=== PATIENT | female | born 1990 | race Caucasian/White ===

== ENCOUNTER 2017-08-18 15:15 | Outpatient (RCR) | payer OTHER ==
--- NOTE | 2017-07-04 12:48 | PT INITIAL EVALUATION ---
MEDICAL DIAGNOSIS: Left Sciatic Pain, TREATMENT DIAGNOSIS: Left Sciatic Pain, , Piriformis Syndrome DATE OF ONSET: 05/02/17 SUBJECTIVE: Lea is a 26 year old female presenting to physical therapy following onset of pain in the posterior L leg and buttocks that occasionally radiates down to the back of the knee with associated numbness and tingling that radiates down to the foot. Pt is currently 26 weeks and reports that pain has been progressively getting worse and more frequent since it's onset in April with frequent hiking during hunting season. Pt reports that pain currently is not present, but that it comes on with increased activity such as moving for work or while painting the baby's room. At worst pt rates pain as a 9/10. Pain is decreased with rest. Pt denies any back pain. 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 ROM: Lumbar ROM screen: flexion: full with L buttocks pain, ext: full without pain, L SB: full with low back pain on R side, R SB: full with low back pain on L side, B rotation: full with stretch end-feel no pain. Hip ROM: Flexion: B WFL, IR: B WFL with pain at end range on L side, ER: B WFL Strength: Pain with hip resisted ER on L side. Palpation: Pt has tenderness to deep palpation of the L piriformis muscle as well as with palpation of the L SIJ Sensation: Sensation intact to light touch throughout B LE. Special Tests: EUSEBIO (-), FADIR (-), Thigh Thrust (+)L, SIJ compression (+), SIJ gapping (+) Mobility: Tressa Lumbar Screen: All repeated motions resulting in no change in pain status. ASSESSMENT: Pt shows signs and symptoms consistent with L SIJ dysfunction resulting in associated L piriformis syndrome and neural impingement. Physical therapy is indicated to address the above listed impairments to improve pt function with ADL's including work and recreational activities. Short Term Goals In 3 weeks pt will improve B UE hip ROM to full without onset of pain in end range for improved function with ADL's. In 3 weeks pt will be able to perform 10 minutes of aerobic activity similar to hiking (walking, stair climbing )without onset of pain for improved function in work and recreational activities. Patient's Goals Decrease pain. PLAN: Patient to be seen for Manual Therapy/STM/MET Strengthening/condition Ice/Heat Range of Motion Spinal Stabilization Ultrasound Stretching Iontophoresis Neuromuscular Re-ed Closed Chain Program Electrical Stim Posture/Body mechanics Gait Trg/Balance Trg Biofeedback Home Exercise Program Mech./Manual Traction Therapeutic Activities Pelvic Floor 3x/Week for 6 Weeks If you have any questions, comments, or concerns about this report or plan, please contact me at . Thanks, Glenny Parker, PT, DPT, CLT MTDD
[~2017-08-18 15:15] MED LIST: ACE3 PO; AMO500 PO; CIPR-344 PO; IBU600 PO; LEVO1IUD2 IY; LOR5/325 PO; METR-1 PO; MOMR ENA; NORG1TAB5 PO
== END 2017-09-30 ==
LOC: PT 15:15
PROVIDERS: ATTEND Obstetrics & Gynecology
DX: M54.32 Sciatica, left side (principal); Z33.1 Pregnant state, incidental; Z3A.26 26 weeks gestation of pregnancy
CPT/HCPCS: 97161

== ENCOUNTER 2017-09-22 05:37 | Inpatient (IN) | payer OTHER ==
[~2017-09-22] VITALS: Ht 160 cm; Wt 103.4 kg
[2017-10-04] MEDS ORDERED: DLR(*) 1000 ML BAG 1,000 ML IV PRN (04:41)
[2017-10-04] MEDS ORDERED: ceFAZolin(*) 2GM/D5W 50ML 50 ML IVPB PRN (05:02)
[2017-10-04] MEDS ORDERED: FAMOTIDINE(*) 20MG/50ML PREMIX 50 ML IVPB PRN (05:02)
[2017-10-04] MEDS ORDERED: OXYTOCIN 30 UNIT/D5LR 500 ML 500 ML IV PRN ×3 (05:02→09:11)
[2017-10-04] MEDS ORDERED: LIDOCAINE/SOD BICARB 8.4% SYR SC PRN (05:05)
[2017-10-04] MEDS ORDERED: LIDOCAINE 1% LOCAL 300 MG/30ML INJ PRN (05:05)
[2017-10-04] MEDS ORDERED: METOCLOPRAMIDE 10 MG/2 ML SDV IVP PRN (05:05)
[2017-10-04] MEDS ORDERED: fentaNYL CITR 100 MCG/2 ML AMP IVP PRN (05:05)
[2017-10-04 05:17] LABS: PLATELET COUNT, AUTOMATED 154 K/uL (150-450)
[2017-10-04] MEDS ORDERED: MISOPROSTOL 25 MCG CAP PV PRN (05:35)
[2017-10-04] MEDS ORDERED: ONDANSETRON 4 MG/2 ML VIAL IVP PRN (05:35)
[2017-10-04] MEDS ORDERED: TERBUTALINE SULF 1 MG/ML VIAL SUBQ PRN ×2 (05:35→09:15)
[2017-10-04] MEDS: LR(*) 1000 ML BAG 1,000 ML IV PRN ×3 (05:38→14:04)
[2017-10-04 05:45] VITALS: BP 114/75; Ht 160 cm; Wt 103.4 kg
[2017-10-04] MEDS ORDERED: PREN-127 PO (06:37)
[2017-10-04] MEDS ORDERED: ACET-1966 PO (06:37)
[2017-10-04] MEDS ORDERED: FAMO20TA28 PO (06:37)
[2017-10-04] MEDS ORDERED: EPIDURAL KEYS XX PRN (08:10)
[2017-10-04] MEDS ORDERED: BUPIVACAINE 0.25% MPF INJ EPI PRN (08:10)
[2017-10-04] MEDS ORDERED: FENTANYL/ROPIVACAINE 100 ML BAG EPI PRN (08:10)
[2017-10-04] MEDS ORDERED: LIDOCAINE/PF 2% 200MG/10ML AMP 200 MG/10 ML AMPUL EPI PRN (08:10)
[2017-10-04] MEDS ORDERED: fentaNYL CITR 100 MCG/2 ML AMP IT PRN (08:10)
--- NOTE | 2017-10-04 08:15 | History & Physical ---
History of Present Illness Age of Patient: 27 : 1 Para or TPAL: 0000 EDC per LMP: Oct 06, 2017 Estimated Gestational Age: 39.5 Chief Complaint LOSS OF FLUID History of Present Illness The patient is a 27 year old 1 para 0000 admitted at 39 5/7 weeks estimated gestational age with an estimated date of delivery 10/06/17 . Patient is admitted with complaint of loss of fluid. No vaginal bleeding. Good movement and occasional contractions. She was evaluated for active labor. She had an uncomplicated course. Her record was reviewed. History Allergies: Coded Allergies: No Known Drug Allergies (Unverified , 08/19/16) Med Rec Home Meds Reported Medications Acetaminophen (TYLENOL) 325 Mg Tablet, 325 MG PO, TAB 10/04/17 Famotidine (PEPCID) 20 Mg Tablet, 20 MG PO QDAY, #10 TAB 10/04/17 Vits W-Ca,Fe,Fa(<1MG) ( VITAMINS) 1 Each Tablet, 1 EACH PO DAILY, TAB 10/04/17 Discontinued Reported Medications Levonorgestrel (MIRENA) 1 Each Iud, 1 EACH IY, #1 07/23/16 Discontinued Scripts Metronidazole (FLAGYL) 500 Mg Tablet, 500 MG PO BID, #20 TAB Prov:DIANA XAVIER MD 08/19/16 Ciprofloxacin Hcl (CIPRO) 500 Mg Tablet, 500 MG PO BID, #20 Prov:DIANA XAVIER MD 08/19/16 Exam General Exam Vital Signs Vital Signs Date Time Temp Pulse Resp B/P (MAP) Pulse Ox O2 Delivery O2 Flow Rate FiO2 10/04/17 05:45 98.7 86 16 114/75 (88) 94 Room Air Cardiovascular: Regular Rate and Rhythm Respiratory: Clear to Auscultation Abdomen: Gravid - Non-Tender Extremities: No Edema Cervical Dialation: 3 (rn) Uterine Contractions(Q min): 5 Fetus Heart Tone Variabilty: Moderate FHT Category: I Medical Decision Making Data Points Result Diagram: 10/04/17 0510 Assessment and Plan Problems: (1) Active labor at term Assessment & Plan: loss of fluid, no change in cervix, desires epidural will place and augment as necessary Copies to: UMESH SCHAEFER MD, JOHN MD Oct 04, 2017 08:15
--- NOTE | 2017-10-04 09:13 | Labor Progress Note ---
Labor Subjective Progress Notes Subjective comfortable with epidural Vaginal Discharge/Fluid: Clear Fluid Labor Pain: Comfortable Labor Objective Vital Signs Vital Signs Date Time Temp Pulse Resp B/P (MAP) Pulse Ox O2 Delivery O2 Flow Rate FiO2 10/04/17 05:45 98.7 86 16 114/75 (88) 94 Room Air Cervical Dialation: 3.5 Cervical Effacement (%): 80 Cervical Consistency: Moderate Cervical Position: Mid Station: 0 Presentation: Vertex Uterine Contractions(Q min): 4 Uterine Contraction Strength: Mild Fetus Heart Tones: 130 FHT Category: I Other Result Diagram: 10/04/17 0510 Assessment and Plan Problems: (1) Active labor at term Assessment & Plan: will augment with pitocin, will need some softening of cervix before likely to see normal labor change in cervix UMESH SCHAEFER MD Oct 04, 2017 09:13
--- NOTE | 2017-10-04 09:50 | Anesthesia OB Pre-Anes Eval ---
History of Present Illness Anesthesia Start Date: Oct 04, 2017 Anesthesia Start Time: 08:14 OB Anesthesia Diagnosis: spontaneous labor, spontaneous ROM EDC: Oct 06, 2017 : 1 Para: 0 Pain Ratin Result Diagram: 10/04/17 0510 Height (Inches): 63.00 Weight (Pounds): 228 BMI Calculated: 40.38 Past Medical History Home Meds Reported Medications Acetaminophen (TYLENOL) 325 Mg Tablet, 325 MG PO, TAB 10/04/17 Famotidine (PEPCID) 20 Mg Tablet, 20 MG PO QDAY, #10 TAB 10/04/17 Vits W-Ca,Fe,Fa(<1MG) ( VITAMINS) 1 Each Tablet, 1 EACH PO DAILY, TAB 10/04/17 Discontinued Reported Medications Levonorgestrel (MIRENA) 1 Each Iud, 1 EACH IY, #1 07/23/16 Discontinued Scripts Metronidazole (FLAGYL) 500 Mg Tablet, 500 MG PO BID, #20 TAB Prov:DIANA XAVIER MD 08/19/16 Ciprofloxacin Hcl (CIPRO) 500 Mg Tablet, 500 MG PO BID, #20 Prov:DIANA XAVIER MD 08/19/16 Allergies: Coded Allergies: No Known Drug Allergies (Unverified , 08/19/16) Anesthesia OB ROS Eyes ROS: other Airway Class: ll GI ROS: ice chips Last Solids Date: Oct 04, 2017 Last Solids Time: 04:30 ASA Classification: 2, E Assessment and Plan Anesthesia Plan: LEB Assessment Anesthesia consent signed, epidural procedure and complications explained in pre -anesthesia visit. procedure briefly explained again. Questions invited. Lea stated she is ok to proceed. Anesthesia Stop Day: Oct 04, 2017 Anesthesia Stop Time: 08:20 SALEEM HOPE CRNA Oct 04, 2017 09:50
--- NOTE | 2017-10-04 09:59 | Procedure Note ---
Anesthetic Placement Note Anesthesia Plan: LEB Permit for Anesthesia Signed: Yes Anesthesia Technique: Patient Sitting Anesthesia Prep: Chlorhexidine Interspace: L 2-3 Amount Local - cc's: 3 Anesthesia Needle: 17g Touhy/Schliff Anesthesia Attempts: 2 Loss of Resistance: Air Depth of DO (cm): 4 Cerebral Spinal Fluid: No Catheter Insertion (cm): 5 Catheter Type: Norton - Spring Wound Epidural Dressing: Tegaderm Anesthesia Tray: Lot Number ([id number]), Expiration Date (2018-05-03), Reference Number ([id number]) Anesthesia Medications: Epidural Test Dose: 1.5 Lido/Epi (1:200,000), Dose - mL (5 ), Time (0832), Negative Epidural Loading Dose: 0.2% Ropivicaine, With Fentanyl 2mcg/ml, Dose - ml (10) , Time (0842) Epidural Infusion: 0.2% Ropivicaine, With Fentanyl 2mcg/ml, Start Time: (0850) Epidural Pump Setting: Bolus Dose - mL (5), Lockout - Minutes (10), Maintenance Rate - mL/hr (9), Maximum per Hour - mL (19) Complications: None Comment: pt. tolerated well. no csf, blood or paresthesias noted. pain score prior to epidural was 9 and after was 0. SALEEM HOPE CRNA Oct 04, 2017 09:59
--- NOTE | 2017-10-04 10:03 | Anesthesia Progress Note ---
Progress/Maintenance Anesthesia Note Date: Oct 04, 2017 Anesthesia Note Time: 10:00 Pain Intensity: 0 Pump: On Pump Rate (ML/HR): 9 Motor Level: Bending Knees-Bilateral Dilatation: 3 Position: Semi-Fowlers Report Received From: Other (Duane Hope CRNA) SALEEM HOPE CRNA Oct 04, 2017 10:02
--- NOTE | 2017-10-04 13:02 | Labor Progress Note ---
Labor Subjective Progress Notes Subjective comfortable with epidural Labor Pain: Comfortable Labor Objective Vital Signs Vital Signs Date Time Temp Pulse Resp B/P (MAP) Pulse Ox O2 Delivery O2 Flow Rate FiO2 10/04/17 05:45 98.7 86 16 114/75 (88) 94 Room Air Cervical Dialation: 9 (RN EXAM) Uterine Contractions(Q min): 3 Fetus Heart Tones: 120 Heart Tone Variabilty: Moderate FHT Category: II Other Result Diagram: 10/04/17 0510 Assessment and Plan Problems: (1) Active labor at term Assessment & Plan: PROGRESSING ANTICIPATE VAGINAL DELIVERY UMESH SCHAEFER MD Oct 04, 2017 13:02
--- NOTE | 2017-10-04 14:20 | Anesthesia Progress Note ---
Progress/Maintenance Anesthesia Note Date: Oct 04, 2017 Anesthesia Note Time: 14:15 Pain Intensity: 7 Pump: On Pump Rate (ML/HR): 9 Motor Level: Bending Knees-Bilateral Dilatation: 9 Position: Semi-Fowlers Drug Bolus: 0.25% Marcaine, Other (3 ml of 0.25 Marcaine plus 100 mcgs Fentanyl ) SALEEM HOEP CRNA Oct 04, 2017 14:20
[2017-10-04] MEDS ORDERED: FAMOTIDINE(*) 20MG/50ML PREMIX 50 ML IVPB SCH (15:00)
--- NOTE | 2017-10-04 15:55 | Anesthesia Progress Note ---
Progress/Maintenance Anesthesia Note Date: Oct 04, 2017 Anesthesia Note Time: 15:50 Pain Intensity: 3 Pump: Off Motor Level: Bending Knees-Bilateral Dilatation: 10 Position: Semi-Fowlers Anesthesia Treatment: Bag empty, pump off. Pt pushing. will bolus if needed. SALEEM HOPE CRNA Oct 04, 2017 15:55
[2017-10-04] MEDS ORDERED: BUPIV/EPI 0.25% 1:200,000 50ML INFIL ONE (16:30)
[2017-10-04] MEDS ORDERED: LANOLIN OINT 7 GM TUBE TP PRN (17:00)
[2017-10-04] MEDS ORDERED: ACETAMINOPHEN 325 MG TAB PO PRN (17:00)
[2017-10-04] MEDS ORDERED: HYDROmorphone HCL 2 MG TAB PO PRN (17:00)
[2017-10-04] MEDS ORDERED: MAGNESIUM HYDROXIDE* 30ML UDCP PO PRN (17:00)
[2017-10-04] MEDS ORDERED: HYDROCORTISONE 2.5% CR 30GM TB PR PRN (17:00)
[2017-10-04] MEDS ORDERED: HYDR2TAB4 PO (17:01)
[2017-10-04] MEDS ORDERED: IBUP800T37 PO (17:01)
--- NOTE | 2017-10-04 17:01 | OB Delivery Note ---
Delivery Note Vaginal Delivery Type: Spont. Vaginal Delivery Delivery Date: Oct 04, 2017 Delivery Time: 16:17 Delivery Anesthesia: Epidural, Local Sex: Female Weight (gms): [address] [place] Apgars: 1 Minute (8), 5 Minute (9) Repair Needed: Laceration, Vaginal, 2nd Degree Estimated Blood Loss: 400 Delivery Complications: Nuchal Cord Notes: PROM, MADE SLOW PROGRESS INITIALLY, AUGMENTED WITH PITOCIN AFTER EPIDURAL PLACED. PROGRESSED TO COMPLETE, PUSHED EFFECTIVELY. DELIVERY OVER MIDLINE LACERATION, NO COMPLICATIONS, REPAIRED WITH 3-0 VICRYL, LABIAL FLAP APPROXIMATED WITH 4-0 VICRYL. TOLERATED WELL Feeder Loader in Attendence: No Copies to: UMESH SCHAEFER MD, JOHN MD Oct 04, 2017 17:01
--- NOTE | 2017-10-04 17:03 | OB/GYN Discharge Summary ---
Discharge Summary Reason for Hosp/Final Diag: (1) Active labor at term (2) care following vaginal delivery Hospital Course & Plan: PROM, PITOCIN AUGMENTED WITH EPIDURAL VAGINAL DELIVERY , ON DAY 2, Pain controlled, Tolerating diet and activity. Baby . Normal lochia. Lates Vital Signs Vital Signs Date Time Temp Pulse Resp B/P (MAP) Pulse Ox O2 Delivery O2 Flow Rate FiO2 10/04/17 05:45 98.7 86 16 114/75 (88) 94 Room Air Weight (Pounds): 228 Result Diagram: 10/04/17 0510 Condition: Improved Discharge: Home, Self Long Term Meds Active Scripts Ibuprofen (IBUPROFEN) 800 Mg Tablet, 1 TAB PO Q8H, #30 TAB 0 Refills Take with food every 8 hours. Prov:UMESH JI MD 10/04/17 Hydromorphone Hcl (HYDROMORPHONE HCL) 2 Mg Tablet, 2-4 MG PO Q4H for PAIN, #20 TAB 0 Refills Prov:UMESH JI MD 10/04/17 Reported Medications Acetaminophen (TYLENOL) 325 Mg Tablet, 325 MG PO, TAB 10/04/17 Famotidine (PEPCID) 20 Mg Tablet, 20 MG PO QDAY, #10 TAB 10/04/17 Vits W-Ca,Fe,Fa(<1MG) ( VITAMINS) 1 Each Tablet, 1 EACH PO DAILY, TAB 10/04/17 Discontinued Reported Medications Levonorgestrel (MIRENA) 1 Each Iud, 1 EACH IY, #1 07/23/16 Discontinued Scripts Metronidazole (FLAGYL) 500 Mg Tablet, 500 MG PO BID, #20 TAB Prov:DIANA XAVIER MD 08/19/16 Ciprofloxacin Hcl (CIPRO) 500 Mg Tablet, 500 MG PO BID, #20 Prov:DIANA XAVIER MD 08/19/16 Follow up with: Dr. Ji [phone] Follow up in: 6 wks PP or PO Discharge Diet: As Tolerates Discharge Activity: Pelvic Rest Copies to: UMESH JI MD, JOHN MD Oct 04, 2017 17:03
[2017-10-04] MEDS: BENZOCAINE 20% 60 ML BTL TP PRN (18:31)
[2017-10-04] MEDS: GLYCERIN/WITCH HAZEL LEAF 1 PK TP PRN (18:31)
[2017-10-04] MEDS: IBUPROFEN 800 MG TAB PO SCH (18:32)
[2017-10-04 19:55] VITALS: BP 123/66
[2017-10-04] MEDS: DOCUSATE CALCIUM 240 MG CAP PO SCH (20:54)
[2017-10-04 23:50] VITALS: BP 111/60
[2017-10-05] MEDS: IBUPROFEN 800 MG TAB PO SCH ×3 (01:30→17:39)
[2017-10-05 03:40] VITALS: BP 104/62
--- NOTE | 2017-10-05 07:21 | OB/GYN Progress Note ---
OB Subjective Progress Notes Subjective Pain controlled, Tolerating diet and activity. Baby . Normal lochia. GI: POS Flatus, NEG Nausea, NEG Vomiting : Voiding Well Pain: Mild OB Objective Physical Exam Vital Signs Date Time Temp Pulse Resp B/P (MAP) Pulse Ox O2 Delivery O2 Flow Rate FiO2 10/05/17 03:40 98.6 59 18 104/62 (76) Room Air 10/04/17 05:45 94 Cardiovascular: Regular Rate and Rhythm Respiratory: Clear to Auscultation Abdomen: Fundus Firm Extremities: No Edema Result Diagram: 10/05/17 0525 Assessment and Plan Post Day: 1 POSTAL SERVICE CLERK Assessment: Stable POSTAL SERVICE CLERK Plan: Discharge Home Tomorrow Problems: (1) Active labor at term (2) care following vaginal delivery Assessment & Plan: Pain controlled, Tolerating diet and activity. Baby . Normal lochia. UMESH SCHAEFER MD Oct 05, 2017 07:21
[2017-10-05 07:45] VITALS: BP 110/70
[2017-10-05] MEDS ORDERED: MEASLES,MUMP,RUBELLA VAC 0.5ML SUBQ ONE (09:00)
[2017-10-05] MEDS ORDERED: DIPHTH/TETANUS/ACEL. PERTUSSIS IM ONLY ONE (09:00)
[2017-10-05] MEDS ORDERED: INFLUENZA VIRUS VAC 0.5 ML SYR IM ONLY ONE (09:00)
[2017-10-05] MEDS: MULTIVITAMINS (PRENATAL) TAB PO SCH (09:30)
[2017-10-05] MEDS: DOCUSATE CALCIUM 240 MG CAP PO SCH ×2 (09:30→20:43)
--- NOTE | 2017-10-05 10:33 | Anesthesia Post Eval Note ---
Anesthesia Post Eval Note Pt able to participate in Eval: Yes Cardiovascular Status: Satisfactory Respiratory Status: Satisfactory Pain Managment: Satisfactory PO Nausea/Vomiting: Satisfactory Temperature Management: Satisfactory Mental Status: Satisfactory Post-Op Hydration Status: Satisfactory Anesthesia Type: LEB Anesthesia Tolerance: Reports no complaints except numbness in great toe. It appears to be slowly resolving. SALEEM HOPE CRNA Oct 05, 2017 10:33
[2017-10-05 13:00] VITALS: BP 120/63
[2017-10-05 17:15] VITALS: BP 124/66
[2017-10-05] MEDS: GLYCERIN/WITCH HAZEL LEAF 1 PK TP PRN (17:39)
[2017-10-05 20:46] VITALS: BP 112/83
[2017-10-06] MEDS: IBUPROFEN 800 MG TAB PO SCH ×2 (00:28→09:23)
[2017-10-06 00:38] VITALS: BP 128/78
--- NOTE | 2017-10-06 08:13 | OB/GYN Progress Note ---
OB Subjective Progress Notes Subjective Pain controlled, Tolerating diet and activity. Baby . Normal lochia. GI: POS Flatus, NEG Nausea, NEG Vomiting : Voiding Well Pain: Mild OB Objective Physical Exam Vital Signs Date Time Temp Pulse Resp B/P (MAP) Pulse Ox O2 Delivery O2 Flow Rate FiO2 10/06/17 03:40 16 10/06/17 00:38 98.0 69 128/78 (95) 10/05/17 21:04 Room Air 10/05/17 20:46 95 Cardiovascular: Regular Rate and Rhythm Respiratory: Clear to Auscultation Abdomen: Fundus Firm Extremities: No Edema Result Diagram: 10/05/17 0525 Assessment and Plan Problems: (1) Active labor at term (2) care following vaginal delivery Assessment & Plan: Pain controlled, Tolerating diet and activity. Baby . Normal lochia. UMESH SCHAEFER MD Oct 06, 2017 08:13
[2017-10-06 08:45] VITALS: BP 115/72
[2017-10-06] MEDS: DOCUSATE CALCIUM 240 MG CAP PO SCH (09:23)
[2017-10-06] MEDS: MULTIVITAMINS (PRENATAL) TAB PO SCH (09:23)
[2017-10-06] MEDS: BENZOCAINE 20% 60 ML BTL TP PRN (09:27)
== END 2017-10-06 11:40 | disposition home or self-care (01) | DRG 775 ==
LOC: OB 10-04 04:39
PROVIDERS: ADMIT Obstetrics & Gynecology; ATTEND Obstetrics & Gynecology
PROC: 10E0XZZ Delivery of Products of Conception, External Approach (ICD-10-PCS; principal; 2017-10-04)
PROC: 0KQM0ZZ Repair Perineum Muscle, Open Approach (ICD-10-PCS; 2017-10-04)
DX: O69.81X0 Labor and delivery complicated by cord around neck, without compression, not applicable or unspecified (principal); O70.1 Second degree perineal laceration during delivery; Z3A.39 39 weeks gestation of pregnancy; Z37.0 Single live birth
CPT/HCPCS: 36415; 85025; 85027; 86850; 86900; 86901; J2590; J7120

== ENCOUNTER → 2017-12-24 | Outpatient (REF) ==
[2017-10-04 05:45] VITALS: BMI 40.4
[~2017-12-24] MED LIST changes: +ACET-1966 PO; +FAMO20TA28 PO; +HYDR2TAB4 PO; +IBUP800T37 PO; +PREN-127 PO
[2017-12-24 08:48] LABS: LDL CHOLESTEROL 120 mg/dl
== END ==
DX: Z02.9 Encounter for administrative examinations, unspecified (principal)

== ENCOUNTER 2018-06-21 18:28 | Emergency (ER) | payer OTHER ==
[2017-10-04 05:45] VITALS: BMI 40.4
[~2018-06-21 18:28] MED LIST changes: +FLUC200T56 PO
--- NOTE | 2018-06-21 18:36 | ER Report ---
History and Physical Time Seen By MD: 18:36 Hx. of Stated Complaint: PATIENT REPORTS SORE THROAT, COUGH, CONGESTION AND BILATERAL EAR PAIN HPI/ROS CHIEF COMPLAINT: Sinus congestion, cough, sore throat HISTORY OF PRESENT ILLNESS: 27-year-old female patient presents to emergency room with complaint of sinus congestion, cough, sore throat. Patient states this been going on for the past 11 days. She states that she did have a strep screen done on Friday which was negative. She states she does have headache, she's had a cough which seems to worse when she lays down. She denies any nausea, vomiting or diarrhea. She is taken multiple [id number] medications which have not seemed to help. She denies having any fevers, chills. Allergies: Coded Allergies: No Known Drug Allergies (Unverified , 08/19/16) Home Meds Active Scripts Amoxicillin/Pot Clav 875-125 Mg Tab (AUGMENTIN 875-125 TABLET) 1 Each Tablet, 1 TAB PO Q12H, #12 TAB Prov:ELIN HARRISON 06/21/18 Fluconazole (FLUCONAZOLE) 200 Mg Tablet, 200 MG PO QDAY for 14 Days, #15 TAB-CAP 0 Refills Take 2 tablets by mouth on day one, then one tablet by mouth every day for 13 days. Prov:RACHEL KING DO 06/08/18 Ibuprofen (IBUPROFEN) 800 Mg Tablet, 1 TAB PO Q8H, #30 TAB 0 Refills Take with food every 8 hours. Prov:UMESH SCHAEFER MD 10/04/17 Hydromorphone Hcl (HYDROMORPHONE HCL) 2 Mg Tablet, 2-4 MG PO Q4H for PAIN, #20 TAB 0 Refills Prov:UMESH SCHAEFER MD 10/04/17 Reported Medications Acetaminophen (TYLENOL) 325 Mg Tablet, 325 MG PO, TAB 10/04/17 Famotidine (PEPCID) 20 Mg Tablet, 20 MG PO QDAY, #10 TAB 10/04/17 Vits W-Ca,Fe,Fa(<1MG) ( VITAMINS) 1 Each Tablet, 1 EACH PO DAILY, TAB 10/04/17 Past Medical/Surgical History Patient denies any pertinent medical or surgical history. Reviewed Nurses Notes: Yes Hx Smoking: No Smoking Status: Former Smoker Exposure to Second Hand Smoke?: No Hx Substance Use Disorder: No Hx Alcohol Use: No Constitutional Vital Sign - Last 24 Hours 06/21/18 06/21/18 06/21/18 06/21/18 18:31 18:31 18:43 18:58 Temp 98.0 Pulse 102 96 102 Resp 20 B/P (MAP) 122/84 122/84 (97) Pulse Ox 93 96 92 O2 Delivery Room Air 06/21/18 19:00 B/P (MAP) 104/70 (81) Physical Exam General appearance: Alert no distress. Respiratory: Chest is non tender, lungs are clear to auscultation. Cardiac: Regular rate and rhythm. ENT: Tympanic membranes are pearly-marie, auditory canals are patent, mixed mucous membranes are moist. Patient does have erythema and swelling of the bilateral nasal passages. Patient has tenderness over the maxillary sinuses. DIFFERENTIAL DIAGNOSIS: After history and physical exam differential diagnosis was considered for sinusitis Medical Decision Making ED Course/Re-evaluation ED Course Patient was admitted and examined, history and physical were obtained. Differential diagnoses were considered. On examination lungs are clear, heart is regular, abdomen is soft and nontender. Patient does have bilateral maxillary sinus tenderness. I believe the patient has a sinusitis especially with how long this condition has lasted. We will go ahead and treat her with Augmentin twice a day. Patient states she is currently breast-feeding. We did review the drug profile and this is safe for breast-feeding. Discussed with the patient who verbalized understanding and agreement. Patient will be discharged home. She is to follow-up with her primary care provider with any concerns within the next week. Decision to Disposition Date: Jun 21, 2018 Decision to Disposition Time: 18:54 Depart Departure Latest Vital Signs Vital Signs Date Time Temp Pulse Resp B/P (MAP) Pulse Ox O2 Delivery O2 Flow Rate FiO2 06/21/18 19:00 104/70 (81) 06/21/18 18:58 102 92 06/21/18 18:31 98.0 20 Room Air Impression: Primary Impression: Acute sinusitis, unspecified Condition: Improved Disposition: HOME OR SELF-CARE New Scripts Amoxicillin/Pot Clav 875-125 Mg Tab (AUGMENTIN 875-125 TABLET) 1 Each Tablet 1 TAB PO Q12H, #12 TAB Prov: ELIN HARRISON 06/21/18 Patient Instructions: Sinusitis (ED) Additional Instructions: Increase fluid intake. Get plenty of rest. Take the medication as prescribed. Follow up with your primary care provider in the next week. You may take OTC decongestant of choice. Return to the ER if condition worsens. Problem Qualifiers Primary Impression: Acute sinusitis, unspecified Sinusitis location: frontal Recurrence: non-recurrent Qualified Codes: J01.10 - Acute frontal sinusitis, unspecified ELIN HARRISON Jun 21, 2018 18:36
[2018-06-21] MEDS ORDERED: AMOX-559 PO (18:53)
[2018-06-21] MEDS ORDERED: AMOX/CLAV 875 MG TAB PO ONE (18:55)
[2018-06-21 19:00] VITALS: BP 104/70
== END 2018-06-21 19:09 | disposition home or self-care (01) ==
LOC: ER 18:37
DX: J01.10 Acute frontal sinusitis, unspecified (principal)
CPT/HCPCS: 99283

== ENCOUNTER → 2018-07-14 | Outpatient (CLI) | payer OTHER ==
[2017-10-04 05:45] VITALS: BMI 40.4
[~2018-07-14] MED LIST changes: +AMOX-559 PO; +FLUT16SP19 NS; -LEVO1IUD2 IY; +LEVO1IUD3 IY
--- NOTE | 2018-07-14 16:48 | RADIOLOGY IMAGING REPORT ---
FACILITY: [facility] PATIENT NAME: Lea Kaur : 1990 MR: [id number] V: [id number] EXAM DATE: ORDERING PHYSICIAN: LLOYD CHAUDHARY TECHNOLOGIST: Location: [facility] Patient: Lea Kaur : 1990 Visit/Account:[id number] Date of Sevice: 07/14/2018 THYROID HISTORY: Thyroid nodule COMPARISON: None. FINDINGS: SIZE: Normal. Right lobe: 4.2 x 1.2 x 1.7 cm Left lobe: 3.6 x 1 x 1.8 cm Isthmus: 2.8 mm PARENCHYMA: Homogeneous. NODULES: Right lobe: * In the superior pole of the right lobe there is a well-circumscribed hypoechoic nodule measuring 1 .2 x 0.7 x 1.8 cm Left lobe: * None discrete. Isthmus: * None discrete. VASCULARITY: Within normal limits. ADDITIONAL FINDINGS: None. IMPRESSION: There is a 1.2 cm well-circumscribed hypoechoic nodule in the superior pole the right lobe for which ultrasound-guided fine-needle aspiration is recommended REFERENCE: 2015 [place] [employer] Management Guidelines for Adult Patients with Thyroid Nodules and D ifferentiated Thyroid Cancer: The [place] [employer] Guidelines Task Force on Thyroid Nodul es and Differentiated Thyroid Cancer. SONOGRAPHIC PATTERNS: * Benign: Purely cystic nodules (no solid component); estimated risk of malignancy <1 percent; no bi opsy recommended. * Very Low Suspicion: Spongiform or partially cystic nodules without any of the sonographic features described in low, intermediate, or high suspicion patterns; estimated risk of malignancy <3 percent; consider FNA at > 2 cm (Observation without FNA is also a reasonable option). * Low Suspicion: Isoechoic or hyperechoic solid nodule, or partially cystic nodule with eccentric so lid areas, without microcalcification, irregular margin or ETE (extra-thyroidal extension), or taller than wide shape; estimated risk of malignancy 5-10 percent; recommend FNA at >1.5 cm. * Intermediate Suspicion: Hypoechoic solid nodule with smooth margins without microcalcifications, E TE (extra-thyroidal extension), or taller than wide shape; estimated risk of malignancy 10-20 percent ; recommend FNA at > 1 cm. * High Suspicion: Solid hypoechoic nodule or solid hypoechoic component of a partially cystic nodule with one or more of the following features: irregular margins (infiltrative, microlobulated), microc alcifications, taller than wide shape, rim calcifications with small extrusive soft tissue component, evidence of ETE (extra-thyroidal extension); estimated risk of malignancy >70-90 percent; recommend FNA at > 1 cm. NOTES: * Although a sonographically suspicious subcentimeter thyroid nodule without evidence of extrathyroi marge extension or sonographically suspicious lymph nodes may be observed with close sonographic follow -up rather than pursuing immediate FNA, patient age and preference may modify decision-making. A > 50% interval increase in nodule volume and/or development of new suspicious sonographic features are felt to be a valid reasons for potential re-aspiration of a nodule previously shown to have benig n FNA cytology. Report Dictated By: Diana Palencia MD at 07/14/2018 4:42 PM Report E-Signed By: Diana Palencia MD at 07/14/2018 4:44 PM WSN:[email or web address]
== END ==
LOC: US 15:39
PROVIDERS: ATTEND Obstetrics & Gynecology
DX: E04.1 Nontoxic single thyroid nodule (principal)
CPT/HCPCS: 76536

== ENCOUNTER → 2019-03-15 | Outpatient (CLI) | payer OTHER ==
[2017-10-04 05:45] VITALS: BMI 40.4
[~2019-03-15] MED LIST changes: +ASCO-182 PO; +MOM PO
== END ==
LOC: LAB 14:27
PROVIDERS: ATTEND Obstetrics & Gynecology
DX: E04.1 Nontoxic single thyroid nodule (principal)
CPT/HCPCS: 36415; 84443